=== PATIENT | female | born 1965 | race African-American/Black ===

== ENCOUNTER 2018-09-21 18:06 | Emergency (ER) | payer OTHER ==
[2018-09-21] MEDS ORDERED: predniSONE 20 MG TAB ONE (18:29)
--- NOTE | 2018-09-21 19:15 | RAD ---
CHEST PA AND LATERAL: HISTORY: A 53-year-old female with a history of cough. FINDINGS: Heart size is normal. Lungs are clear. No pneumonia, edema, or pleural effusion. IMPRESSION: 1. No acute intrathoracic disease. 2. No evidence for pneumonia. POS: [facility]
== END 2018-09-21 20:10 | disposition home or self-care (01) ==
LOC: MADERS 18:06
DX: J20.9 Acute bronchitis, unspecified (principal); J32.9 Chronic sinusitis, unspecified; I10 Essential (primary) hypertension; Z79.899 Other long term (current) drug therapy
CPT/HCPCS: 71046; J7506; J7620

== ENCOUNTER 2019-09-03 08:45 | Emergency (ER) | payer SELFPAY ==
[2019-09-03 10:54] LABS: Anion Gap 14 mmol/L (10-20); BUN (Urea Nitrogen) 9 mg/dL (9.8-20.1); Calc. Creatinine Clearance 0 mL/min (70-130); Calcium 9.9 mg/dL (7.8-10.44); Carbon Dioxide 25 mmol/L (22-29); Chloride 106 mmol/L (98-107); Estimated GFR-MDRD 90; Glucose 103 mg/dL (70-105); Potassium 3.9 mmol/L (3.5-5.1); Sodium 141 mmol/L (136-145)
[2019-09-03] MEDS ORDERED: Lisinopril 10 MG TAB ONE (10:54)
[2019-09-03] MEDS ORDERED: Hydrochlorothiazide 25 MG TAB ONE (10:54)
== END 2019-09-03 11:10 | disposition home or self-care (01) ==
LOC: MADERS 08:45
DX: I10 Essential (primary) hypertension (principal); Z76.0 Encounter for issue of repeat prescription; Z79.899 Other long term (current) drug therapy
CPT/HCPCS: 36415; 80048; 99283

== ENCOUNTER 2020-03-12 08:56 | Emergency (ER) | payer SELFPAY ==
--- NOTE | 2020-03-12 09:57 | RAD ---
THREE VIEWS RIGHT FOOT: COMPARISON: None. HISTORY: Fall with lateral pain. FINDINGS: Three views of the right foot show no evidence of acute fracture or dislocation. No soft tissue swel ling is seen. No degenerative changes are present. IMPRESSION: No evidence of acute osseous abnormality. POS: [facility]
== END 2020-03-12 10:19 | disposition home or self-care (01) ==
LOC: MADERS 08:56
DX: S93.491A Sprain of other ligament of right ankle, initial encounter (principal); I10 Essential (primary) hypertension; W19.XXXA Unspecified fall, initial encounter

== ENCOUNTER 2023-10-02 15:55 | Emergency (ER) | payer BC | END 2023-10-02 16:44 | disposition home or self-care (01) | LOC: MADERS 15:55 | DX: J01.90 Acute sinusitis, unspecified (principal); I10 Essential (primary) hypertension; Z79.899 Other long term (current) drug therapy | CPT/HCPCS: 99283 ==

== ENCOUNTER 2024-04-17 09:09 | Emergency (ER) | payer BC, SELFPAY ==
[2024-04-17 10:54] LABS: Anion Gap 16 mmol/L (10-20); BUN (Urea Nitrogen) 11 mg/dL (9.8-20.1); Calc. Creatinine Clearance 0 mL/min (70-130); Calcium 10.1 mg/dL (7.8-10.44); Carbon Dioxide 20 mmol/L (22-29); Chloride 108 mmol/L (98-107); Estimated GFR 82; Glucose 96 mg/dL (70-105); Potassium 4.1 mmol/L (3.5-5.1); Sodium 140 mmol/L (136-145)
[2024-04-17 11:24] LABS: Hematocrit 44.8 % (36.0-47.0); Mean Corpuscular HGB CONC 31.3 g/dL (32.0-36.0); Mean Corpuscular Hemoglobin 28.5 pg (27.0-31.0); Mean Platelet Volume 8.6 fL (7.4-10.4); Platelet Count 172 10x3/uL (130-400); RBC Distribution Width 12.9 % (11.5-14.5); Red Blood Cell (RBC) Count 4.93 mill/uL (4.20-5.40)
[2024-04-17 11:25] LABS: %Eosinophils 2.5 % (0.0-10.0); %Lymphocytes 59.2 % (21.0-51.0); %Monocytes 5.9 % (0.0-10.0); %Neutrophils 30.5 % (42.0-75.0)
[2024-04-17 11:26] LABS: %Basophils 1.8 % (0.0-1.0)
== END 2024-04-17 11:25 | disposition home or self-care (01) ==
LOC: MADERS 09:09
DX: I10 Essential (primary) hypertension (principal); R51.9 Headache, unspecified
CPT/HCPCS: 36415; 80048; 83735; 85025; 99283